=== PATIENT | male | born 1995 | race Caucasian/White ===

== ENCOUNTER 2021-09-18 14:14 | Emergency (ER) | payer OTHER ==
[~2021-09-18] VITALS: Ht 193 cm; Wt 104.3 kg
--- NOTE | 2021-09-18 14:22 | NUR ---
ARRIVAL PT ARRIVED TO ED WITH C/O LACERATION TO LEFT HAND MIDDLE FINGER FROM EQUIMPENT AT WORK. BEDSIDE MONITORS APPLIED. VITAL SIGNS STABLE. LACERATION CLEANED. BED IN LOW LOCKED POSITION.
[2021-09-18 14:29] VITALS: BP 143/80
[2021-09-18 14:35] VITALS: BP 143/80
--- NOTE | 2021-09-18 14:53 | ER.PDOC ---
General Chief Complaint: Extremities Stated Complaint: LAC LEFT MIDDLE FINGER Time seen by MD: 14:45 Source: patient Exam Limitations: no limitations History of Present Illness Initial Comments This is a 26-year-old man who comes to the emergency department for a laceration to his right long finger. He cut it on a bolt while he was at work. Where: work Severity: mild Exacerbated By: nothing Relieved By: nothing Quality: pain Allergies: Coded Allergies: shellfish derived (Verified Allergy, Unknown, 09/18/21) Past Medical History Medical History: no pertinent history Surgical History: tonsillectomy Social History Alcohol Use: none Drug Use: none Review of Systems Constitutional: no symptoms reported EENTM: no symptoms reported Respiratory: no symptoms reported Cardiovascular: no symptoms reported Gastrointestinal: no symptoms reported Musculoskeletal: no symptoms reported Skin: no symptoms reported Psychiatric/Neurological: no symptoms reported All Other Systems: Reviewed and Negative Physical Exam General Appearance: alert, no distress Skin: color nml (2 cm laceration to the radial side of the long finger of the right hand. It does not appear to be deep enough for sutures.Normal CSM distally.) Vascular: no vascular compromise Results/Orders Results/Orders Vital Signs Date Time Temp Pulse Resp B/P (MAP) Pulse Ox O2 Delivery O2 Flow Rate FiO2 09/18/21 14:35 98.3 81 18 143/80 (101) 99 Room Air 09/18/21 14:29 98.3 81 18 09/18/21 14:29 98.3 81 18 143/80 (101) 99 Room Air 09/18/21 14:29 98.3 81 18 99 Progress Progress The wound was cleaned with Betadine and sterile water and then Dermabond was used to approximate the wound edges. The patient tolerated the procedure well. ER DEPART Departure Time of Disposition: 14:53 Disposition: 01 HOME / SELF CARE / HOMELESS Impression: Primary Impression: Finger laceration Condition: Stable Patient Instructions: Tissue Adhesive Wound Care Referrals: PCP,UNKNOWN (PCP) PRIMARY CARE PROVIDER Duration or Time Spent with Pa: Unknown Problem Qualifiers Primary Impression: Finger laceration Encounter type: initial encounter Finger: middle finger Damage to nail status: without damage Foreign body presence: without foreign body Laterality: right Qualified Codes: S61.212A - Laceration without foreign body of right middle finger without damage to nail, initial encounter NAEEM JONES MD Sep 18, 2021 14:52
[2021-09-18] MEDS ORDERED: BOOSTRIX IM ONE ×2 (15:00→15:02)
== END 2021-09-18 15:13 | disposition home or self-care (01) ==
LOC: ER 14:14
DX: S61.212A Laceration without foreign body of right middle finger without damage to nail, initial encounter (principal); Z91.013 Allergy to seafood; W45.8XXA Other foreign body or object entering through skin, initial encounter; Y93.89 Activity, other specified; Y92.89 Other specified places as the place of occurrence of the external cause; Y99.0 Civilian activity done for income or pay
CPT/HCPCS: 90471; 90715; 99283; 12001